=== PATIENT | female | born 1975 | race African-American/Black ===

== ENCOUNTER 2020-07-07 14:38 | Emergency (ER) | payer BC, MEDICAID ==
[2020-07-07] MEDS ORDERED: Lidocaine 1% (PF) 30 ML VIAL ONE (15:35)
== END 2020-07-07 16:30 | disposition home or self-care (01) ==
LOC: CSHERS 14:38
DX: H61.002 Unspecified perichondritis of left external ear (principal)
CPT/HCPCS: 99282; J2001